=== PATIENT | female | born 1960 | race Caucasian/White ===

== ENCOUNTER 2016-08-07 14:09 | Emergency (ER) | payer MEDICAID ==
[~2016-08-07] VITALS: Ht 170.2 cm; Wt 140.0 kg
[2016-08-07] MEDS ORDERED: MORPHINE SULFATE 4 MG/ML CPJ (NOT FOR IM USE) IV ONE (14:45)
[2016-08-07] MEDS ORDERED: ONDANSETRON HCL 4MG/2ML VIAL IV ONE (14:45)
[2016-08-07] MEDS ORDERED: HYDROCODONE/ACETAMINOPHEN 5/325MG TABLET PO ONE (16:30)
[2016-08-07 17:00] VITALS: BP 127/66
== END 2016-08-07 18:29 | disposition home or self-care (01) ==
LOC: ER 15:59
DX: S83.91XA Sprain of unspecified site of right knee, initial encounter (principal); M19.90 Unspecified osteoarthritis, unspecified site; J45.909 Unspecified asthma, uncomplicated; E11.9 Type 2 diabetes mellitus without complications; X58.XXXA Exposure to other specified factors, initial encounter; Y93.89 Activity, other specified; Y92.89 Other specified places as the place of occurrence of the external cause; Y99.8 Other external cause status
CPT/HCPCS: 29505; 73562; 96374; 96375; 99284; J2270; J2405; L1830; Z7610